=== PATIENT | male | born 1985 | race Caucasian/White ===

== ENCOUNTER 2023-06-26 17:14 | Emergency (ER) | payer SELFPAY ==
[~2023-06-26] VITALS: Ht 167.6 cm; Wt 73.0 kg
[2023-06-26 17:21] VITALS: O2SAT 97
[2023-06-26] MEDS ORDERED: OXYCODONE HCL/ACETAMINOPHEN 5/325MG TABLET PO ONE (17:30)
[2023-06-26 17:47] VITALS: BP 115/78
[2023-06-26] MEDS ORDERED: METHOCARBAMOL 500MG TABLET PO ONE (20:15)
[2023-06-26] MEDS ORDERED: TOPUD MT (20:57)
[2023-06-26 23:13] VITALS: PULSE 79; RESP 16; TEMP 98.6
== END 2023-06-26 23:14 | disposition home or self-care (01) ==
LOC: ER 17:14
DX: R51.9 Headache, unspecified (principal); Y08.89XA Assault by other specified means, initial encounter; Y93.89 Activity, other specified; Y92.89 Other specified places as the place of occurrence of the external cause; Y99.8 Other external cause status
CPT/HCPCS: 70486; 99284